=== PATIENT | female | born 1965 | race Caucasian/White ===

== ENCOUNTER → 2019-10-22 | Outpatient (CLI) | payer MEDICAID, SELFPAY ==
[2019-10-22 15:40] VITALS: BMI 33.8
[2019-10-22 21:01] LABS: Absolute Lymphocyte Count 2.33 X10^3/uL (0.83-4.51); Absolute Neutrophil Count 3.8 X10^3/uL (2.0-7.7); Basophil# 0.03 X10^3/uL; Basophil% 0.5 % (0-1); Eosinophil# 0.17 X10^3/uL; Eosinophils% 2.6 % (0-5); Hematocrit 46.7 % (37-47); Hemoglobin 15.3 g/dL (12.0-15.0); Lymphocyte # 2.33 X10^3/ul (4.0); Lymphocyte % 35.2 % (19-41); Mean Corp Hgb Conc 32.8 g/dL (32-36); Mean Corpuscular Hgb 29.9 pg (27.0-32.0); Mean Corpuscular Volume 91.4 fL (81-99); Mean Platelet Vol. 9.6 fl (6.2-12.0); Monocyte# 0.31 X10^3/uL; Monocyte% 4.7 % (0-10); NRBC Flagged by Analyzer 0 % (0-5); Neutrophil # 3.76 X10^3/uL (2.7-7.7); Neutrophil % 56.7 % (47-70); Platelet Count 249 K/mm3 (150-450); RBC Distribution Width CV 12.4 % (11.6-14.6); RBC Distribution Width SD 41.2 fl (35.1-43.9); Red Blood Count 5.11 M/mm3 (4.2-5.4); White Blood Count 6.6 K/mm3 (4.4-11.0)
[2019-10-22 21:16] LABS: ALB/GLOB Ratio 0.8 RATIO (0.9-2.4); AST(SGOT) 17 U/L (15-37); Alanine Aminotransfer ALT/SGPT 22 U/L (13-56); Albumin, Serum 3.5 g/dL (3.2-5.0); Alkaline Phosphatase 120 U/L (45-117); Anion Gap 5 (5-15); BUN 11 mg/dL (7-18); Calcium,Total 8.8 mg/dL (8.5-10.1); Chloride 110 mmol/L (98-107); Cholesterol 189 mg/dL (200); EST Glomerular Filtration Rate 61 mL/min (>60); Est Glom Filt Rate - Afr Amer 74 mL/min (>60); Globulin 4.2 g/dL (2.2-4.2); Glucose 130 mg/dL (74-106); High Density Lipoprotein 40 mg/dL; Potassium 4.4 mmol/L (3.5-5.1); Protein, Total 7.7 g/dL (6.4-8.2); Sodium Level 144 mmol/L (136-145); Triglycerides 213 mg/dL; Very Low Density Lipoprotein 43 mg/dL (5-40)
== END | disposition home or self-care (01) ==
PROVIDERS: PCP Nurse Practitioner; Referring Provider Nurse Practitioner; Visit Provider Nurse Practitioner
DX: I10 Essential (primary) hypertension (principal)
CPT/HCPCS: 80053; 80061; 85025

== ENCOUNTER → 2021-11-12 | Outpatient (CLI) | payer MEDICAID, SELFPAY ==
--- NOTE | 2021-11-12 17:07 | MRI_ITS ---
STUDY: MRI RIGHT KNEE REASON FOR EXAM: Anterior right knee pain, no specific injury. TECHNIQUE: Standardized fat and water weighted pulse sequences were obtained in all 3 orthogonal planes. COMPARISON: Radiographs 08/31/2021. FINDINGS: Normal medial meniscus. Normal hyaline cartilage of the medial femorotibial compartment. Normal medial femoral condyle and tibial plateau. Normal medial collateral ligamentous complex (MCL). Normal distal semimembranosus, gracilis and semitendinosus tendons. There is a complex tear of the anterior horn/anterior body of the lateral meniscus (proton-density sagittal images 7-13; proton-density coronal images 21-24). There is arthrosis of the lateral femorotibial compartment with chondral thinning (T2 sagittal image 7). There is subchondral bone edema of the lateral femoral condyle and tibial plateau (T2 coronal images 15-23), a stress phenomenon. Normal proximal tibiofibular articulation. Normal lateral collateral (fibular) ligament. Normal popliteus tendon. Normal biceps femoris tendon. There is mild intrasubstance mucoid degeneration of the anterior cruciate ligament (T2 sagittal image 12). Normal posterior cruciate ligament (PCL). There is mild lateral subluxation of the patella (T2 axial image 12). There is high-grade chondromalacia patellae (T2 axial image 10) with mild subchondral bone edema. Normal medial and lateral patellar retinaculum. Normal visualized quadriceps tendon. Normal patellar tendon. Normal Hoffa''s fat pad. There is a moderate-sized joint effusion. There is a popliteal cyst measuring approximately 5.8 cm in length with extravasation of fluid (T2 coronal images 3-9). There is edema in the anterior subcutis adipose space. The otherwise visualized osseous structures are unremarkable. MRI/Lower Ext Joint Only (Routine) IMPRESSION: Lateral meniscal tear. Arthrosis of the lateral femorotibial compartment. Chondromalacia patellae. Mild lateral subluxation of the patella. Joint effusion. Popliteal cyst with extravasation of fluid. Electronically Signed: Quan Aquino MD at 9:35 EDT ,
--- NOTE | 2021-11-12 17:07 | MRI_ITS ---
STUDY: MRI LEFT KNEE REASON FOR EXAM: Medial left knee pain, no specific injury. TECHNIQUE: Standardized fat and water weighted pulse sequences were obtained in all 3 orthogonal planes. COMPARISON: Radiographs 08/31/2021. FINDINGS: There is a complex tear of the posterior horn of the medial meniscus (proton-density sagittal images 10-16). There is mild peripheral subluxation of the medial meniscus. There is arthrosis of the medial femorotibial compartment with chondral thinning (T2 sagittal image 8). There is mild bone edema of the medial femoral condyle and tibial plateau (T2 coronal images 14-19), a stress phenomenon. Normal medial collateral ligamentous complex (MCL). Normal distal semimembranosus, gracilis and semitendinosus tendons. There is a complex tear of the anterior horn of the lateral meniscus (proton-density sagittal images 29-33) and a complex tear of the posterior horn of the lateral meniscus (proton-density sagittal images 29-32). There is arthrosis of the lateral femorotibial compartment with chondral thinning at the posterior aspect of the compartment (T2 sagittal image 18). There is mild subchondral bone edema of the posterior aspect of the lateral tibial plateau (T2 coronal images 9, 10), a stress phenomenon. Normal proximal tibiofibular articulation. Normal lateral collateral (fibular) ligament. Normal popliteus tendon. Normal biceps femoris tendon. Normal anterior cruciate ligament (ACL). Normal posterior cruciate ligament (PCL). Normal congruent patellofemoral articulation. There is intermediate grade chondromalacia patellae (T2 sagittal image 13) with very mild subchondral bone edema. Normal medial and lateral patellar retinaculum. Normal visualized quadriceps tendon. Normal patellar tendon. Normal Hoffa''s fat pad. There is a moderately large joint effusion. There is an intra-articular body anterior to the medial tibial plateau near the midline (T2 sagittal images 14, 15) measuring 0.8 cm in AP dimension. There is a small ganglion cyst posterior to the joint capsule medial to the midline (T2 coronal images 4, 5) measuring 1.8 cm in length. There is edema in the anterior subcutis adipose space. The otherwise visualized osseous structures are unremarkable. MRI/Lower Ext Joint Only (Routine) IMPRESSION: Medial meniscal tear. Lateral meniscal tear. Arthrosis of the medial and lateral femorotibial compartments. Mild bone edema of the medial and lateral tibial plateau and medial femoral condyle, a stress phenomenon. Chondromalacia patellae. Joint effusion. Intra-articular body. Small posterior ganglion cyst. Electronically Signed: Quan Aquino MD at 9:36 EDT ,
== END | disposition home or self-care (01) ==
PROVIDERS: PCP Nurse Practitioner; Visit Provider Orthopaedic Surgery
DX: M67.40 Ganglion, unspecified site (principal); R60.9 Edema, unspecified; M71.21 Synovial cyst of popliteal space [Baker], right knee; M22.42 Chondromalacia patellae, left knee; S83.282A Other tear of lateral meniscus, current injury, left knee, initial encounter; M22.41 Chondromalacia patellae, right knee; S83.281A Other tear of lateral meniscus, current injury, right knee, initial encounter; S83.011A Lateral subluxation of right patella, initial encounter; S83.242A Other tear of medial meniscus, current injury, left knee, initial encounter; M25.561 Pain in right knee; M17.0 Bilateral primary osteoarthritis of knee; M25.562 Pain in left knee
CPT/HCPCS: 73721

== ENCOUNTER 2021-12-08 09:46 | Day surgery (SDC) | payer MEDICAID, SELFPAY ==
[2021-12-08] VITALS (7 sets, daily range): BP systolic 115–179; BP diastolic 78–102; PULSE 72–88; RESP 16–18; TEMP 36–36.8; O2SAT 92–98; BMI 33.0
--- NOTE | 2021-12-08 10:30 | PCM.HP.BLA ---
History and Physical Date of Admission: 12/08/21 [facility] [address] [place] [address] OFFICE VISIT Date of Service:? 11/30/21 MR#: [id number] Acct: [id number] Name:TRINI FOX Rep #: [id number] : 1965 ? ? Provider: Dr. Edmundo Epps, DO Age/Sex:? 56/F ? ? Location: [facility] [place] Status: Signed Intake Intake Visit Reasons:?right knee Is patient in pain?: Yes Allergies Opioids - Morphine Analogues Allergy (Severe, Verified 11/30/21 14:59) VOMITINGPenicillins Allergy (Severe, Verified 11/30/21 14:59) YEAST INFECTION Medications lisinopril 40 mg tablet 40 mg PO DAILY #30 tabs 10/22/19 [Rx Confirmed 11/30/21] venlafaxine 225 mg tablet,extended release 24 hr 225 mg PO DAILY #30 tabs 10/22/19 [Rx Confirmed 11/30/21] apixaban 5 mg tablet (Eliquis) 5 mg PO BID 08/24/21 [History Confirmed 11/30/21] varenicline 0.5 mg tablet 0.5 mg PO BID 08/31/21 [History Confirmed 11/30/21] PFSH Medical History? BONE SPUR R SHOULDER Bronchitis C SECT X2 Depression ECHOCARDIOGRAM NEG Hypertension Left leg DVT Osteoarthritis of knees, bilateral Pneumonia Pulmonary embolism STRESS TEST IN 5 FOR [facility] Surgical History? History of tonsillectomy Family History? Mother Colon cancerOther Bone cancer Diabetes Heart disease High cholesterol Hypertension Liver cancer Lung cancer Social History? Smoking Status:? Current every day smoker alcohol intake:? current substance use type:? does not use HPI right knee Details: Parts of this documentation were recorded by a scribe, this documentation accurately reflects the service provided and the decisions made by me, Dr. Edmundo Epps, DO 11/30/21 0754. TRINI TALAVERA is a 56 year old F here today for right knee preop appointment. Patient notes that she continues to have right knee pain. Her pain is over her medial and lateral knee. Patient denies any popping or clicking. She had an MRI which is here for review. Ortho Exam General General: Yes no acute distress Neurologic: Yes alert and Yes oriented x3 Psychologic: Yes reasonable and appropriate Right Knee Skin/Wound: Yes CDI, No erythema and No ecchymosis Homans Sign: No 1+: Effusion Knee ROM: Yes ROM-Extension -20 to 0 and No ROM-Flexion 0-140 (115) Examination: Yes Med jt line tenderness, Yes Lat jt line tenderness and Yes Haim's Test Stability: NML: Anterior Drawer, NML: Posterior Drawer, NML: Valgus 30 and NML: Varus 30 Patella Grind: No KNEE: painful lateral and medial Chad without click Left Knee Skin/Wound: No ecchymosis, No erythema and No swelling Homans Sign: No 1+: Effusion Knee ROM: Yes ROM-Extension -20 to 0 and No ROM-Flexion 0-140 (112) Examination: Yes med jt line tenderness, Yes Lat jt line tenderness and No Haim's Test Stability: NML: Anterior Drawer, NML: Posterior Drawer, NML: Valgus 30 and NML: Varus 30 Patella Grind: Yes Supplemental Info 11/12/2021 MRI right knee: Complex tear of the anterior horn and body lateral meniscus arthrosis of the lateral compartment subchondral bone edema lateral femoral condyle and tibial plateau, chondromalacia patella 11/12/2021 MRI left knee: Complex tear posterior horn medial meniscus arthrosis of the medial compartment, complex tear anterior horn lateral meniscus complex tear posterior horn lateral meniscus arthrosis of the lateral compartment mild subchondral edema posterior lateral tibial plateau, mild subchondral bone edema of the patella chondromalacia patella, joint effusion intra-articular body anterior to the tibial plateau near midline Coding Level of Care Code Off vis,est,level 3 Diagnoses Right knee DJD? M17.11 Tear of lateral meniscus of right knee, current? S83.281A Mechanical pain of right knee? M25.561 Assessment and Plan Assessment and Plan (1) Right knee DJD: ?Status:?Acute (2) Tear of lateral meniscus of right knee, current: ?Status:?Acute (3) Mechanical pain of right knee: ?Status:?Acute Plan Spoke with the patient about the anatomy of the knee and etiology of her pain. Due to the patient having some joint space, recommended a knee arthroscopy. Explained that she might continue to have knee pain due to her osteoarthritis. She will have increased pain and soreness for about 3 months post op due to the amount of arthritis. She may have a steroid injection at 6 weeks post op if needed. She takes eliquis due to blood clots in her left calf and a PE about 1.5 years ago. She will need to stop 72 hours in advance if approved by Dr Lopez. Reviewed the pre-operative plans with the patient. Risks and benefits of the procedure were fully explained, including but not limited to infection, neurovascular injury, continued pain, arthritis, stiffness, need for further surgery, re-injury, DVT, PE, general risks of anesthesia, and loss of limb or life. The patient understands all the risks and does wish to proceed with written consent.? She might have cramping from a tourniquet. Patient will be using crutches post op whenever she feels confident she is stable on her feet. Patient will be able to return to work when she is able. She should continue to stop smoking. Follow up for her 2 week post op or sooner if pain, swelling, numbness or associated symptoms, or concerns develop.? All questions answered. Patient in agreement of plan. 11/30/21 1522 <Electronically signed by Edmundo Epps DO> Date Edmundo Staley Signature: Date (if applicable) ? CC: ? HINA Velez ~I have re-examined the patient. There are no clinical changes since date of exam
[2021-12-08] MEDS: Lactated Ringers 1,000 ML 15 ML IV (10:39)
[2021-12-08] MEDS: Cefazolin 2 GM in 0.9% Normal Saline 100 ML IV (10:55)
[2021-12-08] MEDS: Epinephrine (1 mg/ml) 1 MG/ML VIAL (11:04)
[2021-12-08] MEDS: Bupivacaine 0.25% 30 ML Vial (11:25)
[2021-12-08] MEDS: MethylPREDNISolone Acetate 40 MG/ML Vial IM (11:25)
[2021-12-08] MEDS: Lidocaine 1% /Epi 1:100 (20ml) 20 ML Vial (11:26)
--- NOTE | 2021-12-08 11:26 | OP.PCM_ITS ---
Operative Report Date of Procedure: 12/08/21 Preop diagnosis: Right knee complex tear anterior horn and body lateral meniscus DJD lateral compartment Postoperative diagnosis: Complex tear lateral meniscus anterior horn and body grade 3 approaching grade 4 diffuse chondromalacia of the lateral femoral condyle weightbearing portion Procedure: Left knee arthroscopic partial lateral meniscectomy posterior horn and body Anesthesia: General Estimated blood loss: 5 mL Tourniquet time: 25 minutes 300 mmHg Complications: none Indication for procedure: 56-year-old female patient with ongoing mechanical knee symptoms was failed conservative treatment including injection therapy. Patient did have an MRI with evidence of a complex anterior horn and body lateral meniscus tear the patient did wish to proceed with an elective arthroscopic surgery to attempt to alleviate the symptoms. Risk benefits and alternatives of the procedure were reviewed including risk of bleeding infection nerve artery tissue damage need for further surgery continued pain and expected postoperative course. Procedure: The patient was met in the preoperative holding area. The operative extremity was identified by both patient and physician and family and marked. Patient was brought back to the operating room on a wheeled cart and transferred to the operating table in the supine position. Anesthesia was started. A well- padded tourniquet was placed on the operative extremity. A lower extremity leg lee was secured to the operative extremity. The contralateral extremity was well-padded and the end of the bed was flexed to 90 degrees. The patient was prepped and draped in the usual sterile fashion. A timeout was called to ensure the proper patient, procedure, and extremity were being contemplated. 0.5% Marcaine with epinephrine was injected into the planned incisional areas under the skin only. An Esmarch was used to exsanguinate the extremity and the tourniquet was inflated. An 11 blade scalpel was used to make a stab incision in the anterior lateral portal. The arthroscope was inserted into the intercondylar notch and inflow and outflow tubes were attached. Arthroscopic visualization began. The medial compartment was entered. An 18-gauge spinal needle was used to establish the placement for anterior medial portal. An 11 blade scalpel was used to make a stab incision. Blunt probe was inserted followed by a meniscal probe. It was free of meniscal pathology there was some cartilage wear on the anterior medial femoral condyle. The ACL was found to be intact. The lateral compartment was entered complex tearing of the anterior horn and body of the lateral meniscus there was diffuse grade 3 approaching grade IV chondromalacia of the lateral femoral condyle with the use of arthroscopic biting instruments and gordo and ArthroCare wand a partial lateral meniscectomy was performed. Gentle chondroplasty was performed to the lateral femoral condyle to remove loose cartilage flaps there was also noted to be grade 3 cartilage wear of the undersurface of the patella and grade 2-3 of areas of the trochlea the arthroscope was switched to the medial portal to complete the procedure. The medial and lateral gutters were inspected and were free of loose bodies. The patellofemoral joint was inspected . There was good patellar tracking. The knee was thoroughly irrigated and drained. An intra- articular injection with 5 cc 0.5% Marcaine plain and 40 mg of Depo-Medrol was injected intra-articularly. The arthroscope was removed the portals were closed with 3-0 nylon arthroscopic stitches. Followed by Xeroform 4 x 4's ABDs web roll and an Marcel wrap. The tourniquet was let down and the drapes were removed. All counts were correct. The patient was brought back to the PACU in stable condition.
--- NOTE | 2021-12-08 11:30 | DCINST_ITS ---
Discharge Instructions Dressing / Incision Call your doctor if you observe: Shortness of breath and Chest pain Additional Dressing/Incision Instructions:: Ice and elevate next 72 hours .keep dressing on clean and dry for 48 hours then may remove begin showering daily but do not submerge in tub or pool. After shower may apply Band-Aids . Encourage knee range of motion weightbearing as tolerated, use crutches until confident in knee then may discontinue. No strenuous activity. When not ambulating keep iced and elevated next 72 hours. Do not mix pain medication with recreational drugs or alcohol only take as prescribed can be addictive and abusive, call with any questions or concerns. Resume Eliquis 12/09/2021 in the morning. Supplement pain medication with 1000 mg of Tylenol every 6 hours to minimize narcotic use. Follow Up Care Please Follow Up With: Edmundo Epps DO When: 2 weeks Test Results: Test results from this visit will be discussed in further detail at your follow- up appointment, if applicable. Discharge Plan Admission Attending Provider: Edmundo Epps Primary Care Provider: Raquel Velez NP Discharge Orders/Prescriptions Prescriptions: New oxycodone 5 mg tablet 5 - 10 mg PO Q4H PRN (Reason: pain) 5 Days Qty: 30 0RF No Action varenicline 0.5 mg tablet 0.5 mg PO BID Rx Instructions: administer on days 4, 5, and 6 of therapy venlafaxine 225 mg tablet extended release 24hr 225 mg PO DAILY Qty: 30 12RF Eliquis 5 mg tablet 5 mg PO BID Referrals / Follow Up: Raquel Velez NP, [facility] [Primary Care Provider] - Disposition Discharge Orders: Discharge Patient (Routine); Ordered 12/08/21 Ordered By: Dr. Edmundo Epps
== END 2021-12-08 13:12 | disposition home or self-care (01) ==
LOC: SDC 09:47 → AC 09:48
PROVIDERS: PCP Nurse Practitioner; Referring Provider Orthopaedic Surgery; Visit Provider Orthopaedic Surgery
PROC: (CPT 29870; principal; 2021-12-08 10:40)
DX: S83.271A Complex tear of lateral meniscus, current injury, right knee, initial encounter (principal); X58.XXXA Exposure to other specified factors, initial encounter; M94.261 Chondromalacia, right knee; M17.11 Unilateral primary osteoarthritis, right knee; I10 Essential (primary) hypertension; F17.210 Nicotine dependence, cigarettes, uncomplicated; Z78.0 Asymptomatic menopausal state; Z79.01 Long term (current) use of anticoagulants; Z79.899 Other long term (current) drug therapy; Z86.711 Personal history of pulmonary embolism; Z86.718 Personal history of other venous thrombosis and embolism
CPT/HCPCS: 29881; 20610; 01400; J7120; J2405